=== PATIENT | female | born 1980 | race African-American/Black ===

== ENCOUNTER 2017-12-31 22:27 | Emergency (ER) | payer OTHER ==
[~2017-12-31] VITALS: Ht 175.3 cm; Wt 82.6 kg
[2017-12-31 22:31] VITALS: BP 137/74
--- NOTE | 2017-12-31 22:31 | NUR ---
CALLED TO TRIAGE. PT WAITING IN PARKING LOT.
[2017-12-31] MEDS ORDERED: ONDANSETRON 4 MG TAB.RAPDIS ONE (23:26)
[2017-12-31] MEDS ORDERED: HYDROCODONE/APAP 10/325MG 1 EA TABLET ONE (23:26)
[2017-12-31] MEDS ORDERED: PENICILLIN V POTASSIUM 500 MG TABLET PO ONE (23:27)
[2017-12-31] MEDS: HYDROCODONE/APAP 10/325MG 1 EA TABLET PO ONE (23:31)
[2017-12-31] MEDS: ONDANSETRON 4 MG TAB.RAPDIS SL ONE (23:31)
[2017-12-31] MEDS: PENICILLIN V POTASSIUM 500 MG TABLET PO ONE (23:31)
== END 2017-12-31 23:43 | disposition home or self-care (01) ==
LOC: ER 22:31
DX: K08.89 Other specified disorders of teeth and supporting structures (principal)
CPT/HCPCS: A4606; Q0162; Z7610